=== PATIENT | male | born 1995 | race African-American/Black ===

== ENCOUNTER 2020-10-23 11:16 | Inpatient (IN) | payer MEDICAID, OTHER, SELFPAY ==
[2020-10-23] VITALS (9 sets, daily range): BP systolic 96–131; BP diastolic 46–69; PULSE 68–83; RESP 16–20; TEMP 36.1–36.7; O2SAT 97–98; BMI 22.9
--- NOTE | ~2020-10-23 | CT_ITS ---
EXAMINATION: CT HEAD WITHOUT CONTRAST CLINICAL INFORMATION: Closed head injury COMPARISON: None. TECHNIQUE: Contiguous axial imaging was performed from the skull base to vertex without intravenous contrast. This CT examination was performed using dose optimization techniques as appropriate, variously including the following: * Automated exposure control * Adjustment of mA and/or kV according to patient size (this includes techniques or standardized protocols for targeted exams where dose is matched to indication/reason for exam; i.e. extremities or head) Use of iterative reconstruction technique DLP: 744 mGy-cm. FINDINGS: There is no evidence of acute intracranial hemorrhage or territorial infarction. No abnormal mass effect or midline shift is seen. Limon to white matter differentiation is well preserved. No extra-axial fluid collections are identified. No hydrocephalus. No significant volume loss. There is no abnormal attenuation within the brain parenchyma. The osseous structures and soft tissues are normal. Small mucus retention cysts in the maxillary sinuses and right sphenoid. The mastoid air cells and visualized portions of the paranasal sinuses are otherwise well aerated. CT/CT head/brain wo con IMPRESSION: No acute intracranial pathology.
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
[2020-10-23] MEDS: Haloperidol Lactate 5 MG/ML VIAL 10 MG IM (11:02)
[2020-10-23] MEDS: LORazepam 2 MG/ML VIAL IM (11:02)
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
--- NOTE | 2020-10-23 16:12 | PC.NURSE ---
REPORT TAKEN FROM YESSY BAZAN PT HERE ON SEC 12 FOR SI. FAXED TO [facility] FOR REFERRAL. PT APPEARS CALM AND COOPERATIVE, RESTING IN RECLINER W 1:[address]
--- NOTE | 2020-10-23 20:26 | PC.NURSE ---
transfered from main ed without incident. security and careteam to assist. patient changed over with little coaxing. no one listens to me, that's why i'm here. patient tearful upon arrival. clothing placed with rest of belongings in locker 11. pt offered snacks and drinks. denies further needs. patient prompted to obtain lab work. patient state not tonight. can i do it tomorrow? patient asked to be left alone to sleep. Montioring at this time.
--- NOTE | 2020-10-23 21:01 | MHC.CARE ---
CARE team evaluated pt due to [facility] unable to provide a clinician. Plan is for Sect 12 inpt psych placement. Pt will remain in ED until placement is secured. Pt in uninsured and is not likely to be accepted at an outside facility for admission, and will be presented to for possible admission.
--- NOTE | 2020-10-23 21:47 | PC.NURSE ---
contact made to brodie casiano. belongings may be in evidience but they are unable to locate them at this time due to locker only being open M-F after 7am.
--- NOTE | 2020-10-23 22:00 | PC.NURSE ---
per brodie casiano, no belongings were left in their custody.
--- NOTE | 2020-10-23 22:53 | PC.NURSE ---
contact made with ct and security regarding flight risk status. plan for ct to call after shift, security and ert to escort patient to imaging. patient in agreement for labwork post that. charge hand aware of plan.
--- NOTE | 2020-10-23 23:31 | PC.NURSE ---
pt to ct at this time with ert and security
[2020-10-23 23:54] LABS: MANUAL DIFF FLAG NO
[2020-10-23 23:55] LABS: Basophils Percent Auto 0.4 % (0-2); Eosinophils Absolute Auto 0.1 X10*3/uL (0.0-0.4); Eosinophils Percent Auto 1.3 % (0-4); Hematocrit 42.6 % (42-52); Imm Gran Abs Auto 0.02 X10*3/uL (0.00-0.03); Imm Gran Pct Auto 0.2 % (0.0-0.4); Lymphocytes Absolute Auto 2.8 X10*3/uL (1.2-4.9); Lymphocytes Percent Auto 32.2 % (20-40); Mean Corpuscular HGB Conc 32.9 g/dl (31.0-36.0); Mean Corpuscular Hemoglobin 29.1 pg (27.0-33.0); Mean Corpuscular Volume 88.6 fL (80-98); Mean Platelet Volume 8.9 fL (9.4-12.4); Monocytes Absolute Auto 0.7 X10*3/uL (0.1-1.2); Monocytes Percent Auto 7.6 % (2-11); Neutrophils Percent Auto 58.3 % (45-73); Platelet Count 404 X10*3/uL (160-400); Red Blood Count 4.81 X10*6/uL (4.60-5.80); Red Cell Distribution Width 13.2 % (11.0-16.0); White Blood Count 8.6 X10*3/uL (4.8-10.8)
[2020-10-24] VITALS (9 sets, daily range): BP systolic 98–121; BP diastolic 55–75; PULSE 57–90; RESP 14–20; TEMP 36.1–36.9; O2SAT 97
[2020-10-24 00:09] LABS: COVID-19 Test Negative (Negative); IDNOW Serial# 9DD0AD1C
[2020-10-24 00:23] LABS: Ethanol < 10 mg/dL
[2020-10-24 00:24] LABS: Alanine Aminotransferase 17 U/L (0-40); Albumin Level 4.2 g/dL (3.5-5.0); Alkaline Phosphatase 51 U/L (39-117); Anion Gap 13 (12-20); Aspartate Amino Transferase 46 U/L (5-37); Bilirubin Direct 0.3 mg/dL (0.0-0.5); Bilirubin Total 0.7 mg/dL (0.0-1.0); Blood Urea Nitrogen 13 mg/dL (9-16); Calcium 9.3 mg/dL (8.4-10.2); Carbon Dioxide 23 mmol/L (22-29); Chloride 108 mmol/L (96-108); Creatinine Clr Calc Pharmacy 107.2; Estimated Glomerular Filt Rate > 60; Glucose Random 77 mg/dL (60-115); Potassium 4.4 mmol/L (3.3-5.1); Sodium 140 mmol/L (135-145); Total Protein 6.6 g/dL (6.5-8.0)
--- NOTE | 2020-10-24 07:37 | PC.NURSE ---
Report received from HORTENSIA Lora. Pt resting, resp unlabored.
--- NOTE | 2020-10-24 09:26 | PC.NURSE ---
Pt resting, resp unlabored
--- NOTE | 2020-10-24 10:43 | PC.NURSE ---
Pt awoke, reviewed recent events leading up to crisis evaluation w/ pt as requested by pt, Pt adamantly denies SI, but is aware that he is currently awaiting inpatient bed placement. Pt out of bed briefly to make call to girlfriend, is aware that urine specimen is still pending.
--- NOTE | 2020-10-24 12:05 | PC.NURSE ---
Pt resting, resp unlabored
--- NOTE | 2020-10-24 15:29 | PC.NURSE ---
Pt resting, resp unlabored.
--- NOTE | 2020-10-24 16:37 | PC.NURSE ---
Pt awake, alert- on telephone currently. Pt pleasant, conversing w/ staff at times, no concerns reported.
--- NOTE | 2020-10-24 18:07 | PC.NURSE ---
Pt awake, alert, affect even, pleasant.
--- NOTE | 2020-10-24 19:33 | PC.NURSE ---
Patient in bed resting quietly was up briefly for phone use, calm, pleasant, and quiet, denied distress, will continue to monitor.
[2020-10-25] VITALS (8 sets, daily range): BP systolic 100–129; BP diastolic 60–86; PULSE 54–77; RESP 16–20; TEMP 36.7–37; O2SAT 97–98
--- NOTE | 2020-10-25 07:14 | PC.NURSE ---
Report received from HORTENSIA Nava. Pt awake briefly now resting in room, no concerns reported.
[2020-10-25 07:55] LABS: Amphetamine Screen Urine Not Detected (Not Detect); Barbiturates, Urine Not Detected (Not Detect); Benzodiazepines Screen Urine Not Detected (Not Detect); Cannabinoid Screen Urine POSITIVE (Not Detect); Cocaine Screen Urine Not Detected (Not Detect); Opiate Screen Urine Not Detected (Not Detect); Phencyclidine Screen Urine Not Detected (Not Detect)
--- NOTE | 2020-10-25 10:54 | PC.NURSE ---
Pt resting in room, denies any concerns at this time, affect even, awaiting placement.
--- NOTE | 2020-10-25 12:11 | PC.NURSE ---
Pt watching television in common area, affect even, awaiting placement
--- NOTE | 2020-10-25 13:47 | PC.NURSE ---
Py currently on telephone, affect even, no concerns reported, ate lunch.
--- NOTE | 2020-10-25 15:45 | PC.NURSE ---
Pt watching television in common area, pleasant, engaging w/ staff appropriately, aware that bed search is on going.
--- NOTE | 2020-10-25 19:18 | PC.NURSE ---
Patient is on phone talking appropriately, denied distress, per report has been eating adequately and hydrating well, will continue to monitor.
[2020-10-25] MEDS: Melatonin 3 MG TABLET 6 MG PO (22:38)
--- NOTE | 2020-10-26 00:54 | MHC.CARE ---
Pt continues to board in ED, as there has not been a bed available for admission to and pt is uninsured. CARE team will complete 3 day re-assessment if placement is not secured on 10/26/20 to determine appropriate level of care.
--- NOTE | 2020-10-26 07:17 | PC.NURSE ---
REPORT FROM CHE BAZAN, PT PROVIDED WITH BREAKFAST TRAY, ATE BREAKFAST AND NOW REQUESTING FOR SHOWER
[2020-10-26 09:34] VITALS: BP 112/75; PULSE 55; RESP 18; TEMP 37.1; O2SAT 98
--- NOTE | 2020-10-26 15:38 | PC.NURSE ---
Patient noted calm and cooperative. Patient in no distress. Will monitor for changes.
[2020-10-26 17:04] VITALS: BP 112/73; PULSE 65; RESP 17; TEMP 36.8; O2SAT 99
--- NOTE | 2020-10-26 19:34 | PC.NURSE ---
Patient is calm and quiet at this time, appetite good, mood pleasant and affect broad, aware of his plan, no distress reported at this time, currently watching TV. will continue to monitor.
--- NOTE | 2020-10-27 | ECG_ITS ---
Test Reason : COCAINE USE Blood Pressure : / mmHG Vent. Rate : 056 BPM Atrial Rate : 056 BPM P-R Int : 150 ms QRS Dur : 094 ms QT Int : 380 ms P-R-T Axes : -09 -34 -04 degrees QTc Int : 366 ms Sinus bradycardia Left axis deviation Moderate voltage criteria for LVH, may be normal variant Abnormal ECG No previous ECGs available Referred By: Nadia Chu Electronically Signed By:JOSELUIS ZUNIGA MD
--- NOTE | 2020-10-27 01:35 | MHC.CARE ---
A state wide bedsearch is completed, no beds available tonight. Also, due to pt being uninsured limited units willing to review clinical.
[2020-10-27 06:00] VITALS: BP 118/87; PULSE 71; RESP 16; TEMP 36.4; O2SAT 99
--- NOTE | 2020-10-27 06:58 | PC.NURSE ---
Report recieved. Pt currently sleeping, respirations even and unlabored, in no apparent distress. PT is inpatient bedsearch.
[2020-10-27 09:15] VITALS: BP 111/59; PULSE 66; RESP 18; TEMP 36.6; O2SAT 98
--- NOTE | 2020-10-27 10:06 | PC.NURSE ---
PT resting, calm and cooperative, pleasant and polite in conversation.
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
[2020-10-27 18:00] VITALS: BP 123/87; PULSE 69; TEMP 36.7
[2020-10-27] MEDS: Nicotine Polacrilex 2 MG GUM BUCCAL ×2 (19:42→22:22)
[2020-10-27] MEDS: hydrOXYzine HCL 25 MG TABLET 50 MG PO (23:24)
[2020-10-28 05:55] VITALS: BP 130/74; PULSE 58; RESP 16; TEMP 36.6; O2SAT 100
[2020-10-28] MEDS: Nicotine Polacrilex 2 MG GUM BUCCAL ×3 (06:56→18:31)
[2020-10-28 09:08] LABS: Cholesterol 106 mg/dL; HDL Cholesterol 32 mg/dL; LDL Cholesterol Calculated 65 mg/dl; Triglycerides 45 mg/dL
[2020-10-28] MEDS: Nicotine 14 MG PATCH.TD24 TRANSDERMA (09:22)
[2020-10-28 09:59] LABS: Folate 11.8 ng/mL (> or = 4.0); Vitamin B12 312 pg/mL (200-900)
[2020-10-28 10:18] LABS: Estimated Average Glucose 100 mg/dL; Hemoglobin A1c % 5.1 %
[2020-10-28 16:46] VITALS: BP 125/75; PULSE 76; RESP 18; TEMP 36.6; O2SAT 100
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
[2020-10-28] MEDS: hydrOXYzine HCL 25 MG TABLET 50 MG PO (22:46)
[2020-10-29 06:00] VITALS: BP 122/72; PULSE 98; TEMP 36.7; O2SAT 100
--- NOTE | 2020-10-29 07:49 | HO.PSYCHPN ---
Subjective Subjective Date of Service: 10/29/20 Reason For Visit: SI Aggression Subjective Notes: Conditional Voluntary Interim History: Pleasant and cooperative. States he said SI for efect bc she says it all the time when we fight .... so I said it . Now denies SI. I explained he needs a period of observation. No dyscontrol noted. Medication Compliance: Yes Side effects from medications: No Attending Groups: Yes Review of Systems Review of Systems ROS unable to be obtained due to being aggressive and uncooperative Mental Status Exam Mental Status Exam Patient Appearance: Well Grooomed Patient Orientation: Person, Place, Time and Situation Level of Consciousness: Awake Patient Behavior: Appropriate Mood Description: Calm Patient Cognition Impaired: No Ability to Follow Directions: Excellent Speech Pattern: Clear Memory Description: Intact Hallucinations: None Thought Process: Intact Thought Content: positive for Suicidal Ideation (denies) and positive for Homicidal Ideation (denies) Depressive Symptoms: Thoughts of /Suicide (denies) Judgement: Good Diagnostics Vital Signs (24Hr): Vital Signs - 24 hr 10/28/20 16:46 10/29/20 06:00 Temperature 97.8 F 98.0 F Pulse Rate 76 98 Respiratory Rate 18 Blood Pressure 125/75 122/72 Pulse Oximetry 100 100 Body Mass Index 22.9 Labs Results: 10/23/20 23:40 10/23/20 23:40 Labs: Laboratory Results - last 48 hr 10/28/20 10/28/20 10/28/20 07:52 07:52 07:52 Estimat Average Glucose 100 Hemoglobin A1c % 5.1 Triglycerides 45 Cholesterol 106 LDL Cholesterol, Calc 65 HDL Cholesterol 32 Vitamin B12 312 Folate 11.8 Imaging Radiology Impressions: ITS Impressions Head CT 10/23/20 22:30 IMPRESSION: No acute intracranial pathology. Medications Medications Current Medications Generic Name Dose Route Start Last Admin Trade Name Freq PRN Reason Stop Dose Admin Acetaminophen 650 mg 10/27/20 15:42 Acetaminophen 325 Mg Tablet PO Q6H PRN Headache/Pain Mild Scale (1-3) Al Hydroxide/Mg Hydroxide 30 ml 10/27/20 15:42 Magnesium Hydrox/Alum Hydrox 30 Ml Oral.Susp PO Q6H PRN Heartburn/Nausea Escitalopram Oxalate 10 mg 10/29/20 09:00 Escitalopram Oxalate 10 Mg Tablet PO DAILY DYLAN Haloperidol 5 mg 10/27/20 15:47 Haloperidol 5 Mg Tablet PO Q6H PRN agitation Hydroxyzine HCl 50 mg 10/27/20 15:42 10/28/20 22:46 Hydroxyzine Hcl 25 Mg Tablet PO 50 mg Q6H PRN Administration Anxiety/sleep Lorazepam 1 mg 10/27/20 15:48 Lorazepam 1 Mg Tablet PO Q6H PRN agitation/anxiety Magnesium Hydroxide 30 ml 10/27/20 15:42 Milk Of Magnesia 30 Ml Oral.Susp PO DAILY PRN Constipation Nicotine 14 mg 10/28/20 09:12 10/28/20 09:22 Nicotine 14 Mg Patch.Td24 TRANSDERMA 14 mg DAILY DYLAN Administration Nicotine Polacrilex 2 mg 10/27/20 15:42 10/28/20 18:31 Nicotine Polacrilex 2 Mg Gum BUCCAL 2 mg Q2H PRN Administration Nicotine Cravings Trazodone HCl 50 mg 10/27/20 15:42 Trazodone Hcl 50 Mg Tablet PO BEDTIME PRN Insomnia Allergies Allergies Allergy/AdvReac Type Severity Reaction Status Date / Time No Known Allergies Allergy Unverified 05/19/20 19:10 [No Known Allergies*] Assessment & Plan Assessment & Plan (1) Mood disorder: Status: Acute Code(s): F39 - Unspecified mood [affective] disorder Greater than 50% of the session was spent on counseling and/or coordination of care Ct meds. Collateral info from family. Patient educated on: diagnosis Guardian/Caregiver educated on: diagnosis Informed Consent: understands Reason for contiued inpatient stay Substantial Risk for: harm to self and harm to others
[2020-10-29] MEDS: Nicotine 14 MG PATCH.TD24 TRANSDERMA (08:59)
[2020-10-29] MEDS: Nicotine Polacrilex 2 MG GUM BUCCAL ×3 (08:59→19:38)
[2020-10-29] MEDS: Escitalopram Oxalate 10 MG TABLET PO (08:59)
[2020-10-29 17:17] VITALS: BP 128/79; PULSE 65; RESP 18; TEMP 36.6; O2SAT 99
[2020-10-29] MEDS: hydrOXYzine HCL 25 MG TABLET 50 MG PO (22:52)
[2020-10-30 06:20] VITALS: BP 120/75; PULSE 57; RESP 16; TEMP 36.9; O2SAT 100
[2020-10-30] MEDS: Escitalopram Oxalate 10 MG TABLET PO (08:18)
[2020-10-30] MEDS: Nicotine 14 MG PATCH.TD24 TRANSDERMA (08:18)
[2020-10-30] MEDS: Nicotine Polacrilex 2 MG GUM BUCCAL ×3 (08:18→20:51)
--- NOTE | 2020-10-30 11:01 | HO.PSYCHPN ---
Subjective Subjective Date of Service: 10/30/20 Reason For Visit: SI Aggression Interim History: 10/30: Patient continues to report good mood. Denies suicidality. He has had a difficult phone calls with his girlfriend and continue to argue. States he wants to stay away from her for a few days. Patient recounted his legal troubles and wants to improve his life looking for him. Some street talk. 10/29: Pleasant and cooperative. States he said SI for effect bc she says it all the time when we fight .... so I said it . Now denies SI. I explained he needs a period of observation. No dyscontrol noted. Review of Systems Review of Systems ROS unable to be obtained due to being aggressive and uncooperative Yes all other systems are reviewed and are negative Mental Status Exam Mental Status Exam Narrative: Appearance: casually groomed, good hygiene, in NAD Behavior: calm, cooperative Psychomotor: no agitation nor retardation noted Speech: clear, normal rate/rhythm/volume, spontaneous TP: linear TC: no signs of psychosis, future oriented Mood: good Affect: congruent, non labile AH/VH: none Delusions: none Insight/judgment: fair x 2. Memory/cog: alert, oriented x 3. grossly intact to conversational testing. Patient Appearance: Well Grooomed Patient Orientation: Person, Place, Time and Situation Level of Consciousness: Awake Patient Behavior: Appropriate Mood Description: Calm Patient Cognition Impaired: No Ability to Follow Directions: Excellent Speech Pattern: Clear Memory Description: Intact Diagnostics Vital Signs (24Hr): Vital Signs - 24 hr 10/29/20 17:17 10/30/20 06:20 Temperature 97.9 F 98.5 F Pulse Rate 65 57 Respiratory Rate 18 16 Blood Pressure 128/79 120/75 Pulse Oximetry 99 100 Body Mass Index 22.9 Labs Results: 10/23/20 23:40 10/23/20 23:40 Imaging Radiology Impressions: ITS Impressions Head CT 10/23/20 22:30 IMPRESSION: No acute intracranial pathology. Medications Medications Current Medications Generic Name Dose Route Start Last Admin Trade Name Freq PRN Reason Stop Dose Admin Acetaminophen 650 mg 10/27/20 15:42 Acetaminophen 325 Mg Tablet PO Q6H PRN Headache/Pain Mild Scale (1-3) Al Hydroxide/Mg Hydroxide 30 ml 10/27/20 15:42 Magnesium Hydrox/Alum Hydrox 30 Ml Oral.Susp PO Q6H PRN Heartburn/Nausea Escitalopram Oxalate 10 mg 10/29/20 09:00 10/30/20 08:18 Escitalopram Oxalate 10 Mg Tablet PO 10 mg DAILY DYLAN Administration Haloperidol 5 mg 10/27/20 15:47 Haloperidol 5 Mg Tablet PO Q6H PRN agitation Hydroxyzine HCl 50 mg 10/27/20 15:42 10/29/20 22:52 Hydroxyzine Hcl 25 Mg Tablet PO 50 mg Q6H PRN Administration Anxiety/sleep Lorazepam 1 mg 10/27/20 15:48 Lorazepam 1 Mg Tablet PO Q6H PRN agitation/anxiety Magnesium Hydroxide 30 ml 10/27/20 15:42 Milk Of Magnesia 30 Ml Oral.Susp PO DAILY PRN Constipation Nicotine 14 mg 10/28/20 09:12 10/30/20 08:18 Nicotine 14 Mg Patch.Td24 TRANSDERMA 14 mg DAILY DYLAN Administration Nicotine Polacrilex 2 mg 10/27/20 15:42 10/30/20 08:18 Nicotine Polacrilex 2 Mg Gum BUCCAL 2 mg Q2H PRN Administration Nicotine Cravings Trazodone HCl 50 mg 10/27/20 15:42 Trazodone Hcl 50 Mg Tablet PO BEDTIME PRN Insomnia Allergies Allergies Allergy/AdvReac Type Severity Reaction Status Date / Time No Known Allergies Allergy Unverified 05/19/20 19:10 [No Known Allergies*] Assessment & Plan Assessment & Plan (1) MDD (major depressive disorder), recurrent episode, moderate: Status: Acute Code(s): F33.1 - Major depressive disorder, recurrent, moderate Assessment and Plan: 1. Start lexapro 10mg po daily 2. Obtain collateral information 3. Aftercare planning (2) Cocaine abuse: Status: Acute Code(s): F14.10 - Cocaine abuse, uncomplicated Assessment and Plan: 1. pt open to residential programs. (3) Cannabis abuse: Status: Acute Code(s): F12.10 - Cannabis abuse, uncomplicated Greater than 50% of the session was spent on counseling and/or coordination of care Reason for contiued inpatient stay Substantial Risk for: harm to self
[2020-10-30 18:00] VITALS: BP 135/84; PULSE 77; RESP 18; TEMP 36
[2020-10-30] MEDS: hydrOXYzine HCL 25 MG TABLET 50 MG PO (22:29)
[2020-10-31 06:10] VITALS: BP 126/82; PULSE 54; RESP 18; TEMP 37; O2SAT 99
[2020-10-31] MEDS: Escitalopram Oxalate 10 MG TABLET PO (09:04)
[2020-10-31] MEDS: Nicotine Polacrilex 2 MG GUM BUCCAL ×4 (14:16→21:47)
[2020-10-31 17:27] VITALS: BP 131/79; PULSE 65; RESP 16; TEMP 36.3
--- NOTE | 2020-10-31 17:32 | HO.PSYCHPN ---
Subjective Subjective Date of Service: 10/31/20 Reason For Visit: SI Aggression Interim History: Pt reports he retracted 3 day notice as he realized he needed help although he continues to report he was not suicidal. He reports sleeping well. He reports sweating at night along with vivid dreams, which he states are not new, even before lexapro. He reports lexapro helping him feel less anxious, calmer. He has been visible in the unit, social with peers. Review of Systems Review of Systems ROS unable to be obtained due to being aggressive and uncooperative Yes all other systems are reviewed and are negative Mental Status Exam Mental Status Exam Narrative: Appearance: casually groomed, good hygiene, in NAD Behavior: calm, cooperative Psychomotor: no agitation nor retardation noted Speech: clear, normal rate/rhythm/volume, spontaneous TP: linear TC: no signs of psychosis, future oriented Mood: good Affect: congruent, non labile AH/VH: none Delusions: none Insight/judgment: fair x 2. Memory/cog: alert, oriented x 3. grossly intact to conversational testing. Diagnostics Vital Signs (24Hr): Vital Signs - 24 hr 10/30/20 18:00 10/31/20 06:10 10/31/20 17:27 Temperature 96.8 F 98.6 F 97.3 F Pulse Rate 77 54 65 Respiratory Rate 18 18 16 Blood Pressure 135/84 126/82 131/79 Pulse Oximetry 99 Body Mass Index 22.9 Labs Results: 10/23/20 23:40 10/23/20 23:40 Imaging Radiology Impressions: ITS Impressions Head CT 10/23/20 22:30 IMPRESSION: No acute intracranial pathology. Medications Medications Current Medications Generic Name Dose Route Start Last Admin Trade Name Freq PRN Reason Stop Dose Admin Acetaminophen 650 mg 10/27/20 15:42 Acetaminophen 325 Mg Tablet PO Q6H PRN Headache/Pain Mild Scale (1-3) Al Hydroxide/Mg Hydroxide 30 ml 10/27/20 15:42 Magnesium Hydrox/Alum Hydrox 30 Ml Oral.Susp PO Q6H PRN Heartburn/Nausea Escitalopram Oxalate 10 mg 10/29/20 09:00 10/31/20 09:04 Escitalopram Oxalate 10 Mg Tablet PO 10 mg DAILY DYLAN Administration Haloperidol 5 mg 10/27/20 15:47 Haloperidol 5 Mg Tablet PO Q6H PRN agitation Hydroxyzine HCl 50 mg 10/27/20 15:42 10/30/20 22:29 Hydroxyzine Hcl 25 Mg Tablet PO 50 mg Q6H PRN Administration Anxiety/sleep Magnesium Hydroxide 30 ml 10/27/20 15:42 Milk Of Magnesia 30 Ml Oral.Susp PO DAILY PRN Constipation Nicotine 14 mg 10/28/20 09:12 10/31/20 12:58 Nicotine 14 Mg Patch.Td24 TRANSDERMA Not Given DAILY DYLAN Nicotine Polacrilex 2 mg 10/27/20 15:42 10/31/20 16:19 Nicotine Polacrilex 2 Mg Gum BUCCAL 2 mg Q2H PRN Administration Nicotine Cravings Trazodone HCl 50 mg 10/27/20 15:42 Trazodone Hcl 50 Mg Tablet PO BEDTIME PRN Insomnia Allergies Allergies Allergy/AdvReac Type Severity Reaction Status Date / Time No Known Allergies Allergy Unverified 05/19/20 19:10 [No Known Allergies*] Assessment & Plan Assessment & Plan (1) MDD (major depressive disorder), recurrent episode, moderate: Status: Acute Code(s): F33.1 - Major depressive disorder, recurrent, moderate Assessment and Plan: 1. Start lexapro 10mg po daily 2. Obtain collateral information 3. Aftercare planning (2) Cocaine abuse: Status: Acute Code(s): F14.10 - Cocaine abuse, uncomplicated Assessment and Plan: 1. pt open to residential programs. (3) Cannabis abuse: Status: Acute Code(s): F12.10 - Cannabis abuse, uncomplicated Greater than 50% of the session was spent on counseling and/or coordination of care Reason for contiued inpatient stay Substantial Risk for: med/psych decompensation
[2020-10-31] MEDS: hydrOXYzine HCL 25 MG TABLET 50 MG PO (23:02)
[2020-11-01 06:20] VITALS: BP 125/61; PULSE 62; RESP 16; TEMP 36.9; O2SAT 98
[2020-11-01] MEDS: Escitalopram Oxalate 10 MG TABLET PO (08:35)
--- NOTE | 2020-11-01 09:42 | PC.NURSE ---
Pt signed a 3-Day Notice on Saturday11/01/20, up on Saturday11/04/20.
[2020-11-01] MEDS: Nicotine Polacrilex 2 MG GUM BUCCAL ×2 (10:11→14:20)
[2020-11-01] MEDS: hydrOXYzine HCL 25 MG TABLET 50 MG PO (14:20)
--- NOTE | 2020-11-01 16:48 | HO.PSYCHPN ---
Subjective Subjective Date of Service: 11/01/20 Reason For Visit: SI Aggression Interim History: Pt has been visible in the unit and social with select peers. He has attended assigned groups. No behavioral concerns. Pt reports he is doing well. He denies SI/HI. He reports sleeping/eating well. Review of Systems Review of Systems ROS unable to be obtained due to being aggressive and uncooperative Yes all other systems are reviewed and are negative Mental Status Exam Mental Status Exam Narrative: Appearance: casually groomed, good hygiene, in NAD Behavior: calm, cooperative Psychomotor: no agitation nor retardation noted Speech: clear, normal rate/rhythm/volume, spontaneous TP: linear TC: no signs of psychosis, future oriented Mood: good Affect: congruent, non labile AH/VH: none Delusions: none Insight/judgment: fair x 2. Memory/cog: alert, oriented x 3. grossly intact to conversational testing. Patient Appearance: Well Grooomed Patient Orientation: Person, Place, Time and Situation Level of Consciousness: Awake Patient Behavior: Appropriate Mood Description: Calm Patient Cognition Impaired: No Ability to Follow Directions: Excellent Speech Pattern: Clear Memory Description: Intact Diagnostics Vital Signs (24Hr): Vital Signs - 24 hr 10/31/20 17:27 11/01/20 06:20 Temperature 97.3 F 98.4 F Pulse Rate 65 62 Respiratory Rate 16 16 Blood Pressure 131/79 125/61 Pulse Oximetry 98 Body Mass Index 22.9 Labs Results: 10/23/20 23:40 10/23/20 23:40 Imaging Radiology Impressions: ITS Impressions Head CT 10/23/20 22:30 IMPRESSION: No acute intracranial pathology. Medications Medications Current Medications Generic Name Dose Route Start Last Admin Trade Name Boq PRN Reason Stop Dose Admin Acetaminophen 650 mg 10/27/20 15:42 Acetaminophen 325 Mg Tablet PO Q6H PRN Headache/Pain Mild Scale (1-3) Al Hydroxide/Mg Hydroxide 30 ml 10/27/20 15:42 Magnesium Hydrox/Alum Hydrox 30 Ml Oral.Susp PO Q6H PRN Heartburn/Nausea Escitalopram Oxalate 10 mg 10/29/20 09:00 11/01/20 08:35 Escitalopram Oxalate 10 Mg Tablet PO 10 mg DAILY DYLAN Administration Haloperidol 5 mg 10/27/20 15:47 Haloperidol 5 Mg Tablet PO Q6H PRN agitation Hydroxyzine HCl 50 mg 10/27/20 15:42 11/01/20 14:20 Hydroxyzine Hcl 25 Mg Tablet PO 50 mg Q6H PRN Administration Anxiety/sleep Magnesium Hydroxide 30 ml 10/27/20 15:42 Milk Of Magnesia 30 Ml Oral.Susp PO DAILY PRN Constipation Nicotine 14 mg 10/28/20 09:12 11/01/20 08:37 Nicotine 14 Mg Patch.Td24 TRANSDERMA Not Given DAILY DYLAN Nicotine Polacrilex 2 mg 10/27/20 15:42 11/01/20 14:20 Nicotine Polacrilex 2 Mg Gum BUCCAL 2 mg Q2H PRN Administration Nicotine Cravings Trazodone HCl 50 mg 10/27/20 15:42 Trazodone Hcl 50 Mg Tablet PO BEDTIME PRN Insomnia Allergies Allergies Allergy/AdvReac Type Severity Reaction Status Date / Time No Known Allergies Allergy Unverified 05/19/20 19:10 [No Known Allergies*] Assessment & Plan Assessment & Plan (1) MDD (major depressive disorder), recurrent episode, moderate: Status: Acute Code(s): F33.1 - Major depressive disorder, recurrent, moderate Assessment and Plan: 1. Start lexapro 10mg po daily 2. Obtain collateral information 3. Aftercare planning (2) Cocaine abuse: Status: Acute Code(s): F14.10 - Cocaine abuse, uncomplicated Assessment and Plan: 1. pt open to residential programs. (3) Cannabis abuse: Status: Acute Code(s): F12.10 - Cannabis abuse, uncomplicated Greater than 50% of the session was spent on counseling and/or coordination of care Reason for contiued inpatient stay Substantial Risk for: stable for discharge
[2020-11-01 18:00] VITALS: BP 123/73; PULSE 57; TEMP 36.9
[2020-11-01] MEDS: Melatonin 3 MG TABLET 6 MG PO (23:21)
[2020-11-02 06:20] VITALS: BP 124/69; PULSE 68; RESP 18; TEMP 36.9; O2SAT 98
[2020-11-02] MEDS: Escitalopram Oxalate 10 MG TABLET PO (08:52)
[2020-11-02] MEDS: Nicotine Polacrilex 2 MG GUM BUCCAL ×2 (11:11→13:11)
--- NOTE | 2020-11-02 12:59 | PM.PSYDC ---
DS: Providers Provider Date of Service: 11/21/20 Date of admission: 10/27/20 15:42 Primary care physician: Unknown Physician DS: Diagnosis Discharge Diagnosis (1) MDD (major depressive disorder), recurrent episode, moderate: Status: Acute (2) Cocaine abuse: Status: Acute (3) Cannabis abuse: Status: Acute DS: Medications Discharge Medications Home Medications: Home Medications Medication Instructions Recorded Confirmed No Known Home Meds 10/23/20 10/23/20 Previous Rx's Medication Instructions Recorded escitalopram oxalate 10 mg PO DAILY 30 Days #30 tab 11/02/20 hydroxyzine HCl 25 mg PO Q6H PRN 15 Days #30 tab 11/02/20 melatonin 6 mg PO BEDTIME 30 Days #60 tab 11/02/20 nicotine (polacrilex) 2 mg BUCCAL Q2H PRN 30 Days #90 ea 11/02/20 trazodone 50 mg PO BEDTIME PRN 30 Days #30 11/02/20 tab Discharge Plan Discharge Patient Disposition: Home, Self-Care Referrals: Therapist & Psychiatrist: [facility] [Other] (Any issues getting appointments, call Marina ([phone]) ) Gillian Tate MD [Physician] - 12/07/20 3:00 pm Discharge Medications: New trazodone 50 mg Tablet 50 mg PO BEDTIME PRN (Reason: Insomnia) 30 Days Qty: 30 RF: 0 nicotine (polacrilex) 2 mg Gum 2 mg buccal Q2H PRN (Reason: Nicotine Cravings) 30 Days Qty: 90 RF: 0 melatonin 3 mg Tablet 6 mg PO BEDTIME 30 Days Qty: 60 RF: 0 hydroxyzine HCl 25 mg Tablet 25 mg PO Q6H PRN (Reason: Anxiety/sleep) 15 Days Qty: 30 RF: 0 escitalopram oxalate 10 mg Tablet 10 mg PO DAILY 30 Days Qty: 30 RF: 0 No Action No Known Home Meds RF: 0 Discharge Orders: Discharge Order (Routine); Ordered 11/02/20 Ordered By: Kourtney Renee Diet: regular diet Activity on Discharge: As tolerated Stand Alone Forms: Patient Portal Discharge page, Community Support Care Plan Goals: 1. Follow up referrals 2. Take medications as prescribed Health Concerns: 1. Follow up with PCP Plan of Treatment: 1. Follow up with referrals 2. Take medications as prescribed. Discharge Date/Time: 11/02/20 14:53 Data Data Completed and Pending Completed studies during hospitalization [Text1]: 10/28/20 10/28/20 10/28/20 07:52 07:52 07:52 Estimat Average Glucose 100 Hemoglobin A1c % 5.1 Triglycerides 45 Cholesterol 106 LDL Cholesterol, Calc 65 HDL Cholesterol 32 Vitamin B12 312 Folate 11.8 Imaging Diagnostic Imaging Impressions Head CT 10/23/20 22:30 IMPRESSION: No acute intracranial pathology. DS: Summary Hospital Course Hospital Course: [address] [address] Psychiatry Admission Note (In)Signed Patient: Homer EasonMR#: [id number]: [id number]:[id number]/Sex: 25 / MLoc:[id number]: Kourtney Renee cc: ~ Documented by User: Kourtney Renee 10/29/20 10:36 HPI Chief Complaint: SI Aggression Sources of Information: patient interviewed, chart reviewed and crisis/core team assessment reviewed HPI Subjective Notes: 3 Day Narrative: Mr. Eason is a 25 year-old male with hx of cocaine use in early remission and MDD. He was brought to [facility] ED on [address] Pt apparently had argument with his GF and expressed suicidal ideation. Per crisis report, pt had reported that he was going to hang himself or jump into traffic. Pt was found by police and was combative. While in the ED, pt tried to elope and was chemically restraint. His utox was positive for cannabis. On the unit, pt appears calm, cooperative. Pt reports that he expressed suicidal ideation out of frustration but states he had no intention to hurt himself nor that he in fact was suicidal. Pt reports that he was adopted when he was about 13 years old to a couple in [place]. He reports he eloped from his adoptive parents looking for his biological mother in [place]. He reports his mother struggles with substance use and therefore he was in DCF system and ultimately put in adoption. He reports he had criminal charges in his youth initially for drug possession, he spent 4 years in juvenile care home. He was out for one year, then incarcerated again for robbery for another 4 years. He states since he was release from residential about 1-2 years ago he has been homeless. He states he has been staying in friend's houses and at his brother's house. He states there's been times when he does not have a place to stay at and he sleeps on the streets. He reports he had stayed in [facility]'s in [place] but did not feel safe, therefore, he rather stay on the streets. He reports while in care home, he was treated for depression with remeron. He states it did help with his mood and he noticed a difference when he stopped it but he states it was too sedating. He denies any other antidepressant or psychotropic trial. He denies hx of VH/AH. He denies s/s suggestive of hypomania or stephanie. He denies nightmares, flashbacks. He denies history of suicide attempts. Past Psychiatric History: Inpatient: none prior to this one OP: none Suicide attempts: none Medication trials: remeron (good effect but too sedating) HOSPITAL COURSE On the unit, pt presented as calm and cooperative. He adamantly denied suicidal or homicidal ideation. He reported he had argument with GF and out of frustration reported suicidal ideation. He reports that he run away from police as he is traumatized by having spend 8 years of his life in care home. He notes that the police wanted to bring him to the hospital but his initial reaction triggered by his past experience incarceration. His affect was bright, non labile. His hygiene was good. He was future oriented in that he wanted a better life but due to his legal history he has struggled to find stable housing. He also admits that using cocaine has affected his ability to have more stability in his life along with traumatic childhood and upbringing mostly in foster care system and then in care home. After discussing risks, benefits and alternative treatment options, he was started on lexapro. He had been on remeron with good effect but he stated it was too sedation. He was visible in the unit, attended groups, very pleasant on approach and social with peers. He agreed to be referred to OP psychiatric treatment and other welfare case worker services. He was sleeping and eating well. There were no incidences of disruptive behaviors nor use of restraints. Time spent discussing smoking cessation with patient: 3 to 10 minutes Status at Discharge Cognitive/behavioral status at discharge: Pt adamantly denies SI/HI. Pt has brighter affect, congruent with reported improved mood. He is future oriented. No signs of aggression towards self or others. Functional status at discharge: independent ambulation Overall status at discharge: patient is back to baseline Time Spent with Patient Time attestation: Total time spent providing and/or coordinating discharge services: Time spent: Less than 30 minutes
[2020-11-02] MEDS: hydrOXYzine HCL 25 MG TABLET 50 MG PO (13:11)
== END 2020-11-02 14:53 | disposition home or self-care (01) | DRG 751 ==
LOC: HO.ED 20:06 → HO.PM5 10-27 15:51
PROVIDERS: Admitting Provider Psychiatry & Neurology Psychiatry; Emergency Provider Emergency Medicine; Visit Provider Social Worker
DX: F33.1 Major depressive disorder, recurrent, moderate (principal); R45.851 Suicidal ideations; F14.10 Cocaine abuse, uncomplicated; F12.10 Cannabis abuse, uncomplicated; F17.200 Nicotine dependence, unspecified, uncomplicated; Z20.822 Contact with and (suspected) exposure to COVID-19; Z71.6 Tobacco abuse counseling; Z79.899 Other long term (current) drug therapy
CPT/HCPCS: 36415; 70450; 80048; 80061; 80076; 80307; 80320; 82607; 82746; 83036; 85025; 87635; 93005; 99285; J2060

== ENCOUNTER 2022-09-12 08:17 | Inpatient (IN) | payer OTHER, SELFPAY ==
--- NOTE | 2022-09-12 | ECG_ITS ---
Test Reason : MED CLEARANCE Blood Pressure : / mmHG Vent. Rate : 060 BPM Atrial Rate : 060 BPM P-R Int : 172 ms QRS Dur : 098 ms QT Int : 404 ms P-R-T Axes : 062 092 068 degrees QTc Int : 404 ms Normal sinus rhythm with sinus arrhythmia Rightward axis ST elevations due to early repolarization Borderline ECG When compared with ECG of 27-OCT-2020 14:19, QRS axis Shifted right T wave inversion no longer evident in Inferior leads Referred By: Vivi Diggs Electronically Signed By:Derek Fong
[2022-09-12 08:21] VITALS: BP 110/71; PULSE 66; RESP 18; TEMP 36.9; O2SAT 98; BMI 21.7
--- NOTE | 2022-09-12 08:31 | ED_ITS ---
HPI - General Adult General Chief complaint: Psychiatric Symptoms Stated complaint: crisis ,SI Time Seen by Provider: 09/12/22 08:24 Source: patient and other (girlfriend) Mode of arrival: ambulatory Limitations: no limitations History of Present Illness HPI narrative: Patient is a 26 year old assigned male at with a history of cocaine abuse presenting to the emergency department today with suicidal ideation. Patient refused to answer questions about why he is here today. Patient's girlfriend states that the patient has been attempting to jump out of the car to kill himself. Patient denies any complaints at this time. Severity: moderate Severity scale (1-10): 4 Relieving factors: none Exacerbating factors: none Associated symptoms: denies other symptoms Treatments prior to arrival: none Related Data Home Medications Medication Instructions Recorded Confirmed No Known Home Meds 10/23/20 09/12/22 Previous Rx's Medication Instructions Recorded escitalopram oxalate 10 mg tablet 10 mg PO DAILY 30 days #30 tabs 11/02/20 hydroxyzine HCl 25 mg tablet 25 mg PO Q6H PRN Anxiety/sleep 15 11/02/20 days #30 tabs melatonin 3 mg tablet 6 mg PO BEDTIME 30 days #60 tabs 11/02/20 nicotine (polacrilex) 2 mg gum 2 mg buccal Q2H PRN Nicotine 11/02/20 Cravings 30 days #90 ea trazodone 50 mg tablet 50 mg PO BEDTIME PRN Insomnia 30 11/02/20 days #30 tabs Allergies Allergy/AdvReac Type Severity Reaction Status Date / Time No Known Allergies Allergy Verified 09/12/22 08:25 [No Known Allergies*] Review of Systems Constitutional: Constitutional: Reports no additional constitutional complaints, Denies chills, Denies fever(s) and Denies night sweats Eyes: Eyes: Reports no additional eye complaints, Denies blurry vision, Denies change in vision, Denies diplopia, Denies eye discharge, Denies loss of vision and Denies eye pain ENT: Denies dizziness Cardiovascular: Cardiovascular: Reports no additional cardiovascular complaints, Denies chest pain, Denies lightheadedness, Denies Loss of Consciousness and Denies dyspnea Respiratory: Respiratory: Reports no additional respiratory complaints and Denies dyspnea Gastrointestinal: Gastrointestinal: Reports no additional gastrointestinal complaints, Denies abdominal pain, Denies melena, Denies hematochezia, Denies change in bowel habits and Denies change in stool character Genitourinary: Genitourinary: Reports no additional male genitourinary complaints, Denies hematuria, Denies oliguria, Denies difficulty urinating, Denies dysuria, Denies urinary frequency, Denies urinary hesitancy, Denies urinary incontinence and Denies urinary urgency Musculoskeletal: Musculoskeletal: Reports no additional musculoskeletal complaints, Denies numbness and Denies tingling Neurologic: Denies dizziness, Denies loss of vision, Denies numbness and Denies tingling Psychiatric: Psychiatric: Reports no additional psychiatric complaints, Denies homicidal ideation and Reports suicidal ideation Endocrine: Endocrine: Reports no additional endocrine complaints Hematologic/Lymphatic: Hematologic/Lymphatic: Reports no additional hematologic/lymphatic complaints Allergic/Immunologic: Allergic/Immunologic: Reports no additional allergic/immunologic complaints PMFSH Past Medical History Attestation statement: The following information was validated with the patient. Source: old records reviewed, nursing notes reviewed and other (patient's girlfriend) Medical History No active medical problems Social History Social History Household Members: Friend(s) Household Members Other:: PT HAS BEEN BOUNCING FROM FRIEND TO FRIEND'S HOUSE Housing: Homeless Do you presently have visiting nurse or other home services: No Cigarette Packs Per Day: 0.5 Cigarettes Per Day: 10.0 Second Hand Smoke Exposure: Yes Substance Use Type: Marijuana Advance Directives: No Advance Directives Information Provided: No service: No Sexual orientation: Straight/Heterosexual Physical Exam ED Vital Signs: Vital Signs - 24 hr 09/12/22 08:21 09/12/22 16:03 Temperature 98.5 F Pulse Rate 66 68 Respiratory Rate 18 17 Blood Pressure 110/71 120/64 Pulse Oximetry 98 98 Oxygen Delivery Method Room Air Room Air BMI result Body Mass Index 21.7 Const General: cooperative, no acute distress, alert and awake Nutritional Appearance: well nourished Orientation/consciousness: patient oriented x3 Limitations: no limitations HENMT Head: Yes normal to inspection and Yes atraumatic Ears: hearing grossly normal bilaterally and external ears normal General nose exam: Normal external nose present, no nasal discharge noted and no epistaxis Face and sinus: Yes normal facial exam, No abrasion and No laceration Mouth: Normal oral and palatal mucosa present, no drooling and no muffled voice Eyes General: appearance normal, both eyes and all related structures Periorbital: periorbital findings normal Eyelids: Yes eyelids normal Conjunctivae: conjunctivae normal Pupils: Equal, round and reactive pupils present EOM: EOMs intact bilaterally Neck Neck: Yes normal visual inspection, Yes full ROM and Yes no lymphadenopathy Chest Chest palpation & inspection: normal inspection of the chest Resp Effort & Inspection: normal respiratory effort and able to speak in complete sentences Auscultation: clear to auscultation bilaterally Cardio Rate: regular rate Rhythm: regular rhythm GI Inspection: Yes normal to inspection Palpation (GI): Soft to palpation, not firm, nontender and no guarding Neuro General: patient oriented x3 and moves all extremities Cranial nerves: Yes Equal, round and reactive pupils present Cognition (Neuro): normal cognition Motor exam (neuro): 5/5 motor strength present throughout Sensory Exam: Normal double simultaneous stimulation for sensation Coordination: [id number] test normal Extrem General: Yes normal to inspection, Yes full ROM and Yes capillary refill normal Psych Appearance: grossly normal Mental Status: mental status grossly normal Affect: Blunted affect present Thought content: Suicidality present Insight: Limited insight present (Psych) Judgement: Limited judgement present (Psych) Medical Decision Making Medical Decision Making MDM Narrative: Patient is a 26 year old assigned male at with a history of cocaine abuse presenting to the emergency department today with suicidal ideation. Patient's physical exam was unremarkable. Patient's blood work was unremarkable. Patient was accepted for inpatient psychiatric care. I explained my physical exam findings as well as all test results to the patient. I answered all questions asked by the patient. Patient to be admitted. Differential Diagnosis Differential Diagnoses: The differential diagnosis associated with the presentation includes Depression, suicidal ideation Lab Data MDM Lab Attestation statement: I reviewed the patient's lab results. 09/12/22 13:38 09/12/22 13:38 Labs: Lab Results 09/12/22 09/12/22 09/12/22 Range/Units 09:04 13:38 13:38 WBC 4.1 L (4.8-10.8) X10*3/uL RBC 4.48 L (4.60-5.80) X10*6/uL Hgb 12.9 L (14.0-18.0) g/dl Hct 38.7 L (42.0-52.0) % MCV 86.4 (80.0-98.0) fL MCH 28.8 (27.0-33.0) pg MCHC 33.3 (31.0-36.0) g/dl RDW 13.2 (11.0-16.0) % Plt Count 319 (160-400) X10*3/uL MPV 8.6 L (9.4-12.4) fL Immature Gran % (Auto) 0.0 (0.0-0.4) % Neut % (Auto) 48.5 (45-73) % Lymph % (Auto) 41.0 H (20-40) % [place] % (Auto) 9.8 (2-11) % Eos % (Auto) 0.5 (0-4) % Baso % (Auto) 0.2 (0-2) % Lymph # (Auto) 1.7 (1.2-4.9) X10*3/uL [place] # (Auto) 0.4 (0.1-1.2) X10*3/uL Eos # (Auto) 0.0 (0.0-0.4) X10*3/uL Baso # (Auto) 0.0 (0.0-0.2) X10*3/uL Abs Immat Gran (auto) 0.00 (0.00-0.03) X10*3/uL Absolute Neuts (auto) 2.0 (2.0-8.3) x10*3/uL Absolute Nucleated RBC 0.000 (0.0-0.012) X10*3/uL Nucleated RBC % (auto) 0.0 (0.0-0.2) /100WBC Sodium Cancelled Potassium Cancelled Chloride Cancelled Carbon Dioxide Cancelled Anion Gap Cancelled BUN Cancelled Creatinine Cancelled Estim Creat Clear Calc Cancelled Estimated GFR Cancelled Random Glucose Cancelled Calcium Cancelled Total Bilirubin Cancelled AST Cancelled ALT Cancelled Alkaline Phosphatase Cancelled Total Protein Cancelled Albumin Cancelled Ethyl Alcohol mg/dL COVID-19 ([facility]) Negative (Negative) COVID-19 Clin Com See Note 09/12/22 Range/Units 13:38 WBC (4.8-10.8) X10*3/uL RBC (4.60-5.80) X10*6/uL Hgb (14.0-18.0) g/dl Hct (42.0-52.0) % MCV (80.0-98.0) fL MCH (27.0-33.0) pg MCHC (31.0-36.0) g/dl RDW (11.0-16.0) % Plt Count (160-400) X10*3/uL MPV (9.4-12.4) fL Immature Gran % (Auto) (0.0-0.4) % Neut % (Auto) (45-73) % Lymph % (Auto) (20-40) % [place] % (Auto) (2-11) % Eos % (Auto) (0-4) % Baso % (Auto) (0-2) % Lymph # (Auto) (1.2-4.9) X10*3/uL [place] # (Auto) (0.1-1.2) X10*3/uL Eos # (Auto) (0.0-0.4) X10*3/uL Baso # (Auto) (0.0-0.2) X10*3/uL Abs Immat Gran (auto) (0.00-0.03) X10*3/uL Absolute Neuts (auto) (2.0-8.3) x10*3/uL Absolute Nucleated RBC (0.0-0.012) X10*3/uL Nucleated RBC % (auto) (0.0-0.2) /100WBC Sodium 137 Potassium 4.0 Chloride 106 Carbon Dioxide 25 Anion Gap 10 L BUN 14 Creatinine 0.90 Estim Creat Clear Calc 132.2 Estimated GFR > 60 Random Glucose 86 Calcium 9.1 Total Bilirubin 0.3 AST 29 ALT 17 Alkaline Phosphatase 47 Total Protein 6.7 Albumin 4.1 Ethyl Alcohol < 10 mg/dL COVID-19 ([facility]) (Negative) COVID-19 Clin Com Discharge Plan Discharge Clinical Impression: Suicidal ideation Patient Disposition: Admitted As Inpatient Interventions: [place]-Suicide Risk Severity Scale Last Done: 09/12/22 08:55
--- NOTE | 2022-09-12 08:45 | PC.NURSE ---
supplemental triage note- client had professed SI thoughts w plan to artur prince brought here. plan unclear, patient states recent use of thc and cocaine, patient states drug use sporadic . does attest to smoking cigarettes and would like gum as NRT. patient states prev hospitalized here. lives w Falguni. prev meds 'clonidine and remeron .
[2022-09-12 09:25] LABS: COVID-19 Test Negative (Negative); IDNOW Serial# BCCEAD1C
[2022-09-12 13:47] LABS: MANUAL DIFF FLAG NO
[2022-09-12 13:48] LABS: Basophils Percent Auto 0.2 % (0-2); Eosinophils Percent Auto 0.5 % (0-4); Hematocrit 38.7 % (42.0-52.0); Hemoglobin 12.9 g/dl (14.0-18.0); Lymphocytes Absolute Auto 1.7 X10*3/uL (1.2-4.9); Mean Corpuscular HGB Conc 33.3 g/dl (31.0-36.0); Mean Corpuscular Hemoglobin 28.8 pg (27.0-33.0); Mean Corpuscular Volume 86.4 fL (80.0-98.0); Mean Platelet Volume 8.6 fL (9.4-12.4); Monocytes Absolute Auto 0.4 X10*3/uL (0.1-1.2); Monocytes Percent Auto 9.8 % (2-11); Neutrophils Percent Auto 48.5 % (45-73); Platelet Count 319 X10*3/uL (160-400); Red Blood Count 4.48 X10*6/uL (4.60-5.80); Red Cell Distribution Width 13.2 % (11.0-16.0); White Blood Count 4.1 X10*3/uL (4.8-10.8)
[2022-09-12 14:34] LABS: Alanine Aminotransferase 17 U/L (0-40); Albumin Level 4.1 g/dL (3.5-5.0); Alkaline Phosphatase 47 U/L (39-117); Anion Gap 10 (12-20); Aspartate Amino Transferase 29 U/L (5-37); Bilirubin Total 0.3 mg/dL (0.0-1.0); Blood Urea Nitrogen 14 mg/dL (9-16); Calcium 9.1 mg/dL (8.4-10.2); Carbon Dioxide 25 mmol/L (22-29); Chloride 106 mmol/L (96-108); Creatinine Clr Calc Pharmacy 132.2; Estimated Glomerular Filt Rate > 60; Ethanol < 10 mg/dL; Glucose Random 86 mg/dL (60-115); Sodium 137 mmol/L (135-145); Total Protein 6.7 g/dL (6.5-8.0)
--- NOTE | 2022-09-12 15:25 | PC.NURSE ---
report received from HORTENSIA Byrd Pt is resting on bed at this time. Fiance is at the bedside visiting
[2022-09-12 16:03] VITALS: BP 120/64; PULSE 68; RESP 17; O2SAT 98
[2022-09-12 19:38] LABS: Amphetamine Screen Urine Not Detected (Not Detect); Barbiturates, Urine Not Detected (Not Detect); Benzodiazepines Screen Urine Not Detected (Not Detect); Cannabinoid Screen Urine POSITIVE (Not Detect); Cocaine Screen Urine POSITIVE (Not Detect); Fentanyl, urine Not Detected (Not Detect); Opiate Screen Urine Not Detected (Not Detect); Phencyclidine Screen Urine Not Detected (Not Detect)
--- NOTE | 2022-09-13 01:42 | PC.ADMIT ---
Pt is a 26 year old male admitted to the unit after referral from [facility] through the [facility] ED. Pt arrived on unit at 2310 on 09/12/2022. Legal status is CV. Pt denies current medical issues except for GERD. Pt reports daily use of marijuana. Pt reports not having used cocaine for some time now but recently used in the last few days. Pt stated that one of the reasons he is here is because he felt that he was wanted to relapse on cocaine bad . States that he only recently used some cocaine a few days ago. Pt's precipitant to admission was that he had not been taking his medications for about a year and everything was fine until a few days ago (cocaine usage?). Pt reports feeling an episode of increased anxiety and depression while he was in the car with his fiancee and that he suddenly wanted to get out of the car but that his fiancee didn't slow down fast enough. Pt stated he was not trying to harm himself but just wanted to get out of the car quickly. Per crisis eval, Pt's fiancee / states that he was having escalating anxiety & depression with SI and made attempts to jump out of car into traffic while she was driving.Later at [facility] ED, pt stated he attempted to jump out of car to knock myself out . Pt presents in hospital [facility] with a depressed affect, makes intermittent eye contact, stating that he probably will not be able to sleep as he has not for several days. Provider forest economist Dixie notified of admission and orders obtained. Pt placed on 15 minute safety checks. Pt reports feeling safe in hospital.
--- NOTE | 2022-09-13 02:25 | PC.NURSE ---
Pt is refusing the flu shot.
[2022-09-13 09:26] LABS: Estimated Average Glucose 103 mg/dL; Hemoglobin A1c % 5.2 %
[2022-09-13 09:38] VITALS: BP 119/85; PULSE 57; RESP 15; TEMP 36.6; O2SAT 98
[2022-09-13 11:50] LABS: Alanine Aminotransferase 20 U/L (0-40); Albumin Level 4.4 g/dL (3.5-5.0); Alkaline Phosphatase 49 U/L (39-117); Anion Gap 10 (12-20); Aspartate Amino Transferase 26 U/L (5-37); Bilirubin Direct 0.2 mg/dL (0.0-0.5); Bilirubin Total 0.5 mg/dL (0.0-1.0); Blood Urea Nitrogen 15 mg/dL (9-16); Calcium 9.5 mg/dL (8.4-10.2); Carbon Dioxide 25 mmol/L (22-29); Chloride 106 mmol/L (96-108); Cholesterol 116 mg/dL; Creatinine Clr Calc Pharmacy 99.1; Estimated Glomerular Filt Rate > 60; Glucose Fasting 85 mg/dL (60-99); HDL Cholesterol 28 mg/dL; LDL Cholesterol Calculated 75 mg/dl; Potassium 4.3 mmol/L (3.3-5.1); Sodium 137 mmol/L (135-145); Total Protein 7.1 g/dL (6.5-8.0); Triglycerides 66 mg/dL
[2022-09-13 12:07] LABS: Folate 14.6 ng/mL (> or = 4.0); Vitamin B12 445 pg/mL (200-900)
[2022-09-13] MEDS: Nicotine Polacrilex 2 MG GUM 4 MG BUCCAL ×2 (12:13→20:18)
[2022-09-13 12:22] VITALS: BMI 20.7
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
[2022-09-13] MEDS: Nicotine 21 MG PATCH.TD24 TRANSDERMA (13:17)
--- NOTE | 2022-09-13 14:15 | MHC.CLN ---
RE: CONSULT HT 6'1 WT 74.5KG (164#) IBW 184#+/-10% PT IS 89% IBW INDICATES BORDERLINE MILD UNDER WT FOR HT HOWEVER BMI 20.7 NORMAL PREVIOUS WT HX REVEALS 72.6KG (10/23/20) WT UP 4.4# SINCE LAST ADMISSION ENN: 2200KCALS, 74G PROTEIN, 2200ML FLUID LABS UNREMARKABLE DIET RX: REGULAR-APPROPRIATE NO NEW ORDERS AT THIS TIME MONITOR PO INTAKE CLOSELY IF PO INTAKE POOR X 3 DAYS; RECOMMEND ADDING ENSURE BID WEEKLY WEIGHTS
[2022-09-13] MEDS: Mirtazapine 7.5 MG TABLET PO (20:18)
[2022-09-14] MEDS: Nicotine 21 MG PATCH.TD24 TRANSDERMA (08:26)
[2022-09-14 08:59] VITALS: BP 120/74; PULSE 52; RESP 16; TEMP 36.8; O2SAT 100
[2022-09-14 20:58] VITALS: BP 119/72; PULSE 63; RESP 16; TEMP 36.1; O2SAT 97
[2022-09-14] MEDS: Mirtazapine 7.5 MG TABLET PO (22:15)
--- NOTE | 2022-09-14 23:22 | P.PNPSI_ITS ---
Subjective Subjective Date of Service: 09/14/22 Reason For Visit: SI Subjective Notes: Rueda Warning, Conditional Voluntary and 3 Day Interim History: Patient relates history of PTSD in relationship to past longterm time states he felt a little tired in the morning but slept last night and feels somewhat better today. Patient states he feels supported by his partner That he did not intend to kill himself but had felt distraught prior to admission again denies any manic symptoms stated he had felt well on Remeron in the past Medication Compliance: Yes Mental Status Exam Mental Status Exam Patient Appearance: Well Grooomed Patient Orientation: Person, Place, Time and Situation Level of Consciousness: Awake Patient Behavior: Appropriate Mood Description: Calm, Depressed and Apprehensive Affect Description: Constricted Patient Cognition Impaired: No Ability to Follow Directions: Good Speech Pattern: Clear Memory Description: Intact Hallucinations: None Delusions: Not Present Thought Process: Intact Thought Content: positive for Preoccupation, positive for Suicidal Ideation (Denies active self-harm states at times he feels overwhelmed) and negative for Homicidal Ideation Depressive Symptoms: Increased Anxiety, Increased Irritability and Difficulty Sleeping Judgement: Fair Diagnostics Vital Signs (24Hr): Vital Signs - 24 hr 09/14/22 08:59 09/14/22 20:58 Temperature 98.3 F 96.9 F Pulse Rate 52 63 Respiratory Rate 16 16 Blood Pressure 120/74 119/72 Pulse Oximetry 100 97 Oxygen Delivery Method Room Air Room Air BMI result Body Mass Index 20.7 Labs 09/12/22 13:38 09/13/22 09:02 Labs: Laboratory Results - last 48 hr 09/13/22 09/13/22 09/13/22 09:02 09:02 09:02 Sodium 137 Potassium 4.3 Chloride 106 Carbon Dioxide 25 Anion Gap 10 L BUN 15 Creatinine 1.20 Estim Creat Clear Calc 99.1 Estimated GFR > 60 Fasting Glucose 85 Estimat Average Glucose 103 Hemoglobin A1c % 5.2 Calcium 9.5 Total Bilirubin 0.5 Direct Bilirubin 0.2 AST 26 ALT 20 Alkaline Phosphatase 49 Total Protein 7.1 Albumin 4.4 Triglycerides 66 Cholesterol 116 LDL Cholesterol, Calc 75 HDL Cholesterol 28 Vitamin B12 445 Folate 14.6 TSH 0.90 Medications Medications Current Medications Acetaminophen (Acetaminophen 325 Mg Tablet) 650 mg PO Q6H PRN PRN Reason: Headache/Pain Mild Scale (1-3) Al Hydroxide/Mg Hydroxide (Magnesium Hydrox/Alum Hydrox 30 Ml Oral.Susp) 30 ml PO Q6H PRN PRN Reason: Heartburn/Nausea Hydroxyzine HCl (Hydroxyzine Hcl 25 Mg Tablet) 25 mg PO Q6H PRN PRN Reason: Anxiety Magnesium Hydroxide (Milk Of Magnesia 30 Ml Oral.Susp) 30 ml PO DAILY PRN PRN Reason: Constipation Mirtazapine (Mirtazapine 7.5 Mg Tablet) 7.5 mg PO BEDTIME [facility] Last Admin: 09/14/22 22:15 Dose: 7.5 mg Nicotine (Nicotine 21 Mg Patch.Td24) 21 mg TRANSDERMA DAILY [facility] Last Admin: 09/14/22 08:26 Dose: 21 mg Nicotine Polacrilex (Nicotine Polacrilex 2 Mg Gum) 4 mg BUCCAL Q2H PRN PRN Reason: Nicotine Cravings Last Admin: 09/13/22 20:18 Dose: 2 mg Allergies Allergies Allergy/AdvReac Type Severity Reaction Status Date / Time No Known Allergies Allergy Verified 09/12/22 08:25 [No Known Allergies*] Assessment & Plan Assessment & Plan (1) MDD (major depressive disorder), recurrent episode, moderate: Status: Acute Code(s): F33.1 - Major depressive disorder, recurrent, moderate (2) Cocaine abuse: Status: Acute Code(s): F14.10 - Cocaine abuse, uncomplicated (3) Chronic post-traumatic stress disorder (PTSD): Status: Acute Code(s): F43.12 - Post-traumatic stress disorder, chronic Plan Patient seems to be downplaying his recent behavior and symptoms including increased irritability he has suicidal statements increasing insomnia use of substances. History of depression PTSD question cocaine induced irritability in mood difficulty trying clarify diagnosis would benefit from outpatient treatment agreeable to starting mirtazapine 7.5 at bedtime no reported stephanie reportedly his mother was using cocaine during his development. Patient has an 8th grade education he does state he works regularly 09/14/2021 Patient seen chart reviewed continue mirtazapine at bedtime encourage therapeutic [place] abstinence from cocaine and marijuana uses marijuana of his self-care with PTSD On 3 day notice continue to evaluate safety Patient educated on: diagnosis, medication risk/benefits and therapeutic strategies Informed Consent: understands Reason for contiued inpatient stay Substantial Risk for: harm to self and rapid decompensation Time Spent With Patient Time: Total time managing care of this patient today ____ minutes.
[2022-09-15 09:50] VITALS: BP 121/74; PULSE 64; TEMP 36.6; O2SAT 97
--- NOTE | 2022-09-15 17:41 | P.PNPSI_ITS ---
Subjective Subjective Date of Service: 09/15/22 Reason For Visit: SI Interim History: met with patient. Discussed with Nursing. Chart reviewed. Overall slept well last night, which was new for patient. Reported feeling safe and stable. Today reports mood continues to be good. Sleep good. No medication concerns. Hopeful for discharge planning soon. Will lower nicotine patch from 21 mg down to 14 mg. Medication Compliance: Yes Side effects from medications: No Attending Groups: Yes Review of Systems Acute medical concerns: No Review of Systems Review of Systems Yes all other systems are reviewed and are negative Mental Status Exam Mental Status Exam Narrative: pleasant. Engaged. Organized. Appropriately presented. Euthymic. No SI. No HI. No agitation. No psychosis. Insight and judgment fair Diagnostics Vital Signs (24Hr): Vital Signs - 24 hr 09/14/22 20:58 09/15/22 09:50 Temperature 96.9 F 97.8 F Pulse Rate 63 64 Respiratory Rate 16 Blood Pressure 119/72 121/74 Pulse Oximetry 97 97 Oxygen Delivery Method Room Air Room Air BMI result Body Mass Index 20.7 Labs 09/12/22 13:38 09/13/22 09:02 Medications Medications Current Medications Acetaminophen (Acetaminophen 325 Mg Tablet) 650 mg PO Q6H PRN PRN Reason: Headache/Pain Mild Scale (1-3) Al Hydroxide/Mg Hydroxide (Magnesium Hydrox/Alum Hydrox 30 Ml Oral.Susp) 30 ml PO Q6H PRN PRN Reason: Heartburn/Nausea Hydroxyzine HCl (Hydroxyzine Hcl 25 Mg Tablet) 25 mg PO Q6H PRN PRN Reason: Anxiety Magnesium Hydroxide (Milk Of Magnesia 30 Ml Oral.Susp) 30 ml PO DAILY PRN PRN Reason: Constipation Mirtazapine (Mirtazapine 7.5 Mg Tablet) 7.5 mg PO BEDTIME [facility] Last Admin: 09/14/22 22:15 Dose: 7.5 mg Nicotine (Nicotine 14 Mg Patch.Td24) 14 mg TRANSDERMA DAILY [facility] Last Admin: 09/15/22 15:35 Dose: Not Given Nicotine Polacrilex (Nicotine Polacrilex 2 Mg Gum) 4 mg BUCCAL Q2H PRN PRN Reason: Nicotine Cravings Allergies Allergies Allergy/AdvReac Type Severity Reaction Status Date / Time No Known Allergies Allergy Verified 09/12/22 08:25 [No Known Allergies*] Assessment & Plan Assessment & Plan (1) MDD (major depressive disorder), recurrent episode, moderate: Status: Acute Code(s): F33.1 - Major depressive disorder, recurrent, moderate (2) Cocaine abuse: Status: Acute Code(s): F14.10 - Cocaine abuse, uncomplicated (3) Chronic post-traumatic stress disorder (PTSD): Status: Acute Code(s): F43.12 - Post-traumatic stress disorder, chronic Plan Patient seems to be downplaying his recent behavior and symptoms including increased irritability he has suicidal statements increasing insomnia use of substances. History of depression PTSD question cocaine induced irritability in mood difficulty trying clarify diagnosis would benefit from outpatient treatment agreeable to starting mirtazapine 7.5 at bedtime no reported stephanie reportedly his mother was using cocaine during his development. Patient has an 8th grade education he does state he works regularly 09/14/2021 Patient seen chart reviewed continue mirtazapine at bedtime encourage therapeutic [place] abstinence from cocaine and marijuana uses marijuana of his self-care with PTSD On 3 day notice continue to evaluate safety 09/15/2022: No changes to current treatment plan Reason for contiued inpatient stay Substantial Risk for: harm to self Time Spent With Patient Time: Total time managing care of this patient today ____ minutes.
[2022-09-15 20:30] VITALS: BP 119/72; PULSE 73; RESP 16; TEMP 36.7; O2SAT 96
[2022-09-15] MEDS: Mirtazapine 7.5 MG TABLET PO (22:11)
[2022-09-16 09:23] VITALS: BP 138/88; PULSE 74; TEMP 36.6; O2SAT 99
[2022-09-16] MEDS: Nicotine 14 MG PATCH.TD24 TRANSDERMA (09:34)
[2022-09-16] MEDS: Nicotine Polacrilex 2 MG GUM 4 MG BUCCAL (10:50)
--- NOTE | 2022-09-16 12:03 | P.PNPSI_ITS ---
Subjective Subjective Date of Service: 09/16/22 Reason For Visit: SI Interim History: Met with patient. Discussed with Nursing. Chart reviewed. Eager for discharge- I came here because my sleep was bad and its good now . Frustrated at being on a locked unit and hopeful he can discharge tomorrow rather than Saturday which was discussed with team. Looking forward to aftercare which he reports is set up at [facility]. No SI, agitation or psychosis. Medication Compliance: Yes Side effects from medications: No Attending Groups: Yes Review of Systems Acute medical concerns: No Review of Systems Review of Systems Yes all other systems are reviewed and are negative Mental Status Exam Mental Status Exam Narrative: Pleasant. Engaged. Organized. Appropriately presented. Euthymic. No SI. No HI. No agitation. No psychosis. Insight and judgment fair Diagnostics Vital Signs (24Hr): Vital Signs - 24 hr 09/15/22 20:30 09/16/22 09:23 Temperature 98.1 F 97.8 F Pulse Rate 73 74 Respiratory Rate 16 Blood Pressure 119/72 138/88 Pulse Oximetry 96 99 Oxygen Delivery Method Room Air Room Air BMI result Body Mass Index 20.7 Labs 09/12/22 13:38 09/13/22 09:02 Medications Medications Current Medications Acetaminophen (Acetaminophen 325 Mg Tablet) 650 mg PO Q6H PRN PRN Reason: Headache/Pain Mild Scale (1-3) Al Hydroxide/Mg Hydroxide (Magnesium Hydrox/Alum Hydrox 30 Ml Oral.Susp) 30 ml PO Q6H PRN PRN Reason: Heartburn/Nausea Hydroxyzine HCl (Hydroxyzine Hcl 25 Mg Tablet) 25 mg PO Q6H PRN PRN Reason: Anxiety Magnesium Hydroxide (Milk Of Magnesia 30 Ml Oral.Susp) 30 ml PO DAILY PRN PRN Reason: Constipation Mirtazapine (Mirtazapine 7.5 Mg Tablet) 7.5 mg PO BEDTIME [facility] Last Admin: 09/15/22 22:11 Dose: 7.5 mg Nicotine (Nicotine 14 Mg Patch.Td24) 14 mg TRANSDERMA DAILY [facility] Last Admin: 09/16/22 09:34 Dose: 14 mg Nicotine Polacrilex (Nicotine Polacrilex 2 Mg Gum) 4 mg BUCCAL Q2H PRN PRN Reason: Nicotine Cravings Last Admin: 09/16/22 10:50 Dose: 2 mg Allergies Allergies Allergy/AdvReac Type Severity Reaction Status Date / Time No Known Allergies Allergy Verified 09/12/22 08:25 [No Known Allergies*] Assessment & Plan Assessment & Plan (1) MDD (major depressive disorder), recurrent episode, moderate: Status: Acute Code(s): F33.1 - Major depressive disorder, recurrent, moderate (2) Cocaine abuse: Status: Acute Code(s): F14.10 - Cocaine abuse, uncomplicated (3) Chronic post-traumatic stress disorder (PTSD): Status: Acute Code(s): F43.12 - Post-traumatic stress disorder, chronic Plan Patient seems to be downplaying his recent behavior and symptoms including increased irritability he has suicidal statements increasing insomnia use of substances. History of depression PTSD question cocaine induced irritability in mood difficulty trying clarify diagnosis would benefit from outpatient treatment agreeable to starting mirtazapine 7.5 at bedtime no reported stephanie reportedly his mother was using cocaine during his development. Patient has an 8th grade education he does state he works regularly 09/14/2021 Patient seen chart reviewed continue mirtazapine at bedtime encourage therapeutic [place] abstinence from cocaine and marijuana uses marijuana of his self-care with PTSD On 3 day notice continue to evaluate safety 09/15/2022: No changes to current treatment plan 09/16: eager for discharge Reason for contiued inpatient stay Substantial Risk for: rapid decompensation Time Spent With Patient Time: Total time managing care of this patient today ____ minutes.
[2022-09-16 20:50] VITALS: BP 120/65; PULSE 69; RESP 18; TEMP 36.2; O2SAT 96
[2022-09-16] MEDS: Mirtazapine 7.5 MG TABLET PO (20:50)
[2022-09-17 08:10] VITALS: BP 132/86; PULSE 79; RESP 20; TEMP 36.7; O2SAT 100
[2022-09-17] MEDS: Nicotine 14 MG PATCH.TD24 TRANSDERMA (09:15)
[2022-09-17] MEDS: Nicotine Polacrilex 2 MG GUM 4 MG BUCCAL ×2 (14:57→19:02)
[2022-09-17 21:36] VITALS: BP 102/67; PULSE 81; RESP 18; O2SAT 98
[2022-09-17] MEDS: Mirtazapine 7.5 MG TABLET PO (21:39)
--- NOTE | 2022-09-17 22:41 | HO.PSYCHPN ---
Subjective Subjective Date of Service: 09/17/22 Reason For Visit: SI Subjective Notes: Rueda Warning, Conditional Voluntary and 3 Day Interim History: Patient states he is sleeping better denies any active SI relates history of trauma had been treated previously in [place] [facility] with [facility]idine denies active flashbacks but does report difficulty Avoiding crowds certain scenes he does smoke marijuana fairly regularly does not see this as an issue Medication Compliance: Yes Mental Status Exam Mental Status Exam Narrative: Patient was verbal and cooperative speech clear goal directed. Able to relate history of ADHD mood with some anxiety denied any thoughts of self-harm cannot really explain behavior prior to admission denies any active SI was able talk about self medicating with marijuana states future oriented sleep improved no psychosis not overly impulsive or aggressive states she is feeling better with current regimen and feeling safer toward discharge Diagnostics Vital Signs (24Hr): Vital Signs - 24 hr 09/17/22 08:10 Temperature 98.0 F Pulse Rate 79 Respiratory Rate 20 Blood Pressure 132/86 Pulse Oximetry 100 Oxygen Delivery Method Room Air BMI result Body Mass Index 20.7 Labs 09/12/22 13:38 09/13/22 09:02 Medications Medications Current Medications Acetaminophen (Acetaminophen 325 Mg Tablet) 650 mg PO Q6H PRN PRN Reason: Headache/Pain Mild Scale (1-3) Al Hydroxide/Mg Hydroxide (Magnesium Hydrox/Alum Hydrox 30 Ml Oral.Susp) 30 ml PO Q6H PRN PRN Reason: Heartburn/Nausea Hydroxyzine HCl (Hydroxyzine Hcl 25 Mg Tablet) 25 mg PO Q6H PRN PRN Reason: Anxiety Magnesium Hydroxide (Milk Of Magnesia 30 Ml Oral.Susp) 30 ml PO DAILY PRN PRN Reason: Constipation Mirtazapine (Mirtazapine 7.5 Mg Tablet) 7.5 mg PO BEDTIME [facility] Last Admin: 09/17/22 21:39 Dose: 7.5 mg Nicotine (Nicotine 14 Mg Patch.Td24) 14 mg TRANSDERMA DAILY [facility] Last Admin: 09/17/22 09:15 Dose: 14 mg Nicotine Polacrilex (Nicotine Polacrilex 2 Mg Gum) 4 mg BUCCAL Q2H PRN PRN Reason: Nicotine Cravings Last Admin: 09/17/22 19:02 Dose: 4 mg Allergies Allergies Allergy/AdvReac Type Severity Reaction Status Date / Time No Known Allergies Allergy Verified 09/12/22 08:25 [No Known Allergies*] Assessment & Plan Assessment & Plan (1) MDD (major depressive disorder), recurrent episode, moderate: Status: Acute Code(s): F33.1 - Major depressive disorder, recurrent, moderate (2) Cocaine abuse: Status: Acute Code(s): F14.10 - Cocaine abuse, uncomplicated (3) Chronic post-traumatic stress disorder (PTSD): Status: Acute Code(s): F43.12 - Post-traumatic stress disorder, chronic Plan Patient seems to be downplaying his recent behavior and symptoms including increased irritability he has suicidal statements increasing insomnia use of substances. History of depression PTSD question cocaine induced irritability in mood difficulty trying clarify diagnosis would benefit from outpatient treatment agreeable to starting mirtazapine 7.5 at bedtime no reported stephanie reportedly his mother was using cocaine during his development. Patient has an 8th grade education he does state he works regularly 09/14/2021 Patient seen chart reviewed continue mirtazapine at bedtime encourage therapeutic [place] abstinence from cocaine and marijuana uses marijuana of his self-care with PTSD On 3 day notice continue to evaluate safety 09/15/2022: No changes to current treatment plan 09/16: eager for discharge 09/17/2021 Patient does relate history of childhood ADHD and was treated with Abilify and Ritalin when younger. Unclear he stayed states this was helpful. He did find clonidine helpful later in his life regarding anxiety periods try to discuss risks and alternatives to regular use of marijuana to manage anxiety symptoms feels mirtazapine helpful. Looking for discharge referrals to [facility] Reason for contiued inpatient stay Substantial Risk for: inability to function and rapid decompensation Time Spent With Patient Time: Total time managing care of this patient today ____ minutes.
[2022-09-18] MEDS: Nicotine Polacrilex 2 MG GUM 4 MG BUCCAL (08:17)
[2022-09-18 08:24] VITALS: BP 114/70; PULSE 64; RESP 18; TEMP 36.7; O2SAT 97
--- NOTE | 2022-09-18 08:42 | PC.NURSE ---
Orthodox is alert, fully oriented, pleasant and cooperative with discharge process. He denies ideation, plan or intent to harm self or others. He denies physical complaint.
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
== END 2022-09-18 08:57 | disposition home or self-care (01) | DRG 751 ==
LOC: HO.ED 15:12 → HO.PADLT16 23:00
PROVIDERS: Physician Assistant Medical; Admitting Provider Psychiatry & Neurology Psychiatry; Emergency Provider Student in an Organized Health Care Education/Training Program; Visit Provider Psychiatry & Neurology Psychiatry
DX: F33.1 Major depressive disorder, recurrent, moderate (principal); R45.851 Suicidal ideations; F14.10 Cocaine abuse, uncomplicated; F17.210 Nicotine dependence, cigarettes, uncomplicated; F43.12 Post-traumatic stress disorder, chronic; Z71.6 Tobacco abuse counseling; Z20.822 Contact with and (suspected) exposure to COVID-19
CPT/HCPCS: 36415; 80053; 80061; 80076; 80307; 82077; 82607; 82746; 83036; 84443; 85025; 87635; 93005; 99285

== ENCOUNTER 2022-09-30 03:31 | Emergency (ER) | payer OTHER, SELFPAY ==
[2022-09-30 03:41] VITALS: BP 124/85; PULSE 88; RESP 18; TEMP 36.3; O2SAT 98; BMI 21.7
--- NOTE | 2022-09-30 04:03 | ED_ITS ---
HPI - Psych General Chief Complaint: Psychiatric Symptoms Stated Complaint: request sec 12 Time Seen by Provider: 09/30/22 03:56 Source: patient Mode of arrival: ambulatory Limitations: no limitations History of Present Illness HPI Narrative: Patient comes emergency room complaining of thoughts of ?self-harm? without suicidal ideation or homicidal ideation. Patient states that he has been contemplating causing himself harm by concussing himself . Patient states that he has been compliant taking mirtazapine and clonidine, but has been unable to sleep for the last 2 days. Patient denies drug abuse. Related Data Home Medications Medication Instructions Recorded Confirmed clonidine HCl 0.1 mg tablet 1 tab PO BID PRN anxiety 09/30/22 09/30/22 mirtazapine 7.5 mg tablet 1 tab PO BEDTIME 09/30/22 09/30/22 nicotine (polacrilex) 2 mg gum 2 gum PO Q2H PRN nicotine cravings 09/30/22 09/30/22 Allergies Allergy/AdvReac Type Severity Reaction Status Date / Time No Known Allergies Allergy Verified 09/30/22 03:40 [No Known Allergies*] Review of Systems 2 Review of Systems: Constitutional : No Weight loss, No Fever, No Chills, No Night Sweats, No Fatigue, No Malaise ENT/Mouth : No Hearing loss, No Ear Pain, No Nasal Congestion, No Sinus Pain, No Hoarseness, No sore throat, No Rhinorrhea, No Swallowing Difficulty Eyes: No Eye Pain, No Swelling, No Redness, No Foreign Body, No Discharge, No Vision Changes Cardiovascular : No Chest Pain, No SOB, No Dyspnea on Exertion, No Orthopnea, No Edema, No Palpitations Respiratory : No Cough, No Sputum, No Wheezing, No Smoke Exposure, No Dyspnea Gastrointestinal : No Nausea, No Vomiting, No Diarrhea, No Constipation, No abdominal Pain, No Hematochezia, No Melena Genitourinary : no irregular bleeding, No Dysuria, No Urinary Frequency, No Hematuria, No Urinary Incontinence, No Urgency, No Flank Pain, No Urinary Flow Changes, No Hesitancy Musculoskeletal : No joint pain, No Myalgias, No Joint Swelling Skin : No Skin Lesions, No rash Neuro : No Weakness, No Numbness, No Paresthesias, No Loss of Consciousness, No Dizziness, No Headache Psych : Complaining of self-harm thoughts, no suicidal ideation, complaining of anxiety, no homicidal ideation Heme/Lymph: No Bruising, No Bleeding,No Lymphadenopathy Endocrine : No Polyuria, No Polydipsia, No Temperature Intolerance [facility] Past Medical History Medical History Chronic post-traumatic stress disorder (PTSD) No active medical problems Social History Social History Household Members: Other Household Members Other:: fiancee Housing: Apartment Do you presently have visiting nurse or other home services: No Patient Tobacco Use Status: Current everyday Tobacco user Tobacco use type: Cigarette Cigarette Packs Per Day: 1 Cigarettes Per Day: 20.0 Years Smoked: 10 e-Cigarette/Vaping Use: Currently Using Second Hand Smoke Exposure: Yes Substance Use Type: Crack/Cocaine and Marijuana service: No Sexual orientation: Straight/Heterosexual Physical Exam Vital Signs: Vital Signs: Last Vital Signs Temp 97.4 F 09/30/22 03:41 Pulse 88 09/30/22 03:41 Resp 18 09/30/22 03:41 BP 124/85 09/30/22 03:41 Pulse Ox 98 09/30/22 03:41 O2 Del Method 09/30/22 03:41 BMI result Body Mass Index 21.7 Const: Other: Appearance: Alert. Oriented X3. No acute distress. Eyes: Pupils equal, round and reactive to light. ENT: Pharynx normal. Neck: Normal inspection. Neck supple. No lymph nodes noted. No crepitus CVS: Normal heart rate and rhythm. Pulses normal. Normal S1 and S2 Respiratory: No respiratory distress. Breath sounds normal. No Wheezing. No rales Abdomen: Soft and nontender. No rigidity. No distention. Skin: Skin warm and dry. Normal skin color. Normal skin turgor. Extremities: No lower extremity edema. No Lacerations. No Rash Neuro: Oriented X 3. No motor deficit. No sensory deficit. Moving all extremities. No slurred speech. CN 2 through 12 grossly intact Psych: calm, a bit anxious cooperative Course Course Course Narrative: -care team consult pending -physician observation started at 04:00 Medical Decision Making Medical Decision Making MDM Narrative: -care team consult pending -patient calm, cooperative. Requesting food and a book to read Discharge Plan Discharge Clinical Impression: Anxiety Patient Disposition: Still a Patient Prescriptions: No Action clonidine HCl 0.1 mg tablet 1 tab PO BID PRN (Reason: anxiety) nicotine (polacrilex) 2 mg gum 2 gum PO Q2H PRN (Reason: nicotine cravings) mirtazapine 7.5 mg tablet 1 tab PO BEDTIME
[2022-09-30 04:12] LABS: COVID-19 Test Negative (Negative); IDNOW Serial# 6674DD1D
[2022-09-30 04:28] LABS: Amphetamine Screen Urine Not Detected (Not Detect); Barbiturates, Urine Not Detected (Not Detect); Benzodiazepines Screen Urine Not Detected (Not Detect); Cannabinoid Screen Urine POSITIVE (Not Detect); Cocaine Screen Urine POSITIVE (Not Detect); Fentanyl, urine Not Detected (Not Detect); Opiate Screen Urine Not Detected (Not Detect); Phencyclidine Screen Urine Not Detected (Not Detect)
[2022-09-30] MEDS: cloNIDine HCL 0.1 MG TABLET PO (05:12)
[2022-09-30] MEDS: Mirtazapine 7.5 MG TABLET PO (05:12)
--- NOTE | 2022-09-30 05:16 | PC.NURSE ---
Patient just arrived, calm and quiet, reading book, behavior non concerning, med rec completed/approved/Mirtazapine 7.5 mg administered at ordered, awaiting care team evaluation, patient was discharged from [facility] 09/18/2022, VSS, will continue to monitor.
--- NOTE | 2022-09-30 10:24 | PC.NURSE ---
PT SLEEPING. AWAITING CARE TEAM EVAL.
--- NOTE | 2022-09-30 16:16 | MHC.CARE ---
Patient evaluated by the CARE Team and does not require a psychiatric admission there are no current safety concerns. of patient here and is comfortable with discharge plan. See written assessment for details. Provider updated
== END 2022-09-30 16:24 | disposition home or self-care (01) ==
PROVIDERS: Emergency Provider Emergency Medicine
DX: F41.1 Generalized anxiety disorder (principal); F43.0 Acute stress reaction; R45.851 Suicidal ideations; F17.210 Nicotine dependence, cigarettes, uncomplicated; Z20.822 Contact with and (suspected) exposure to COVID-19; Z20.828 Contact with and (suspected) exposure to other viral communicable diseases; Z79.899 Other long term (current) drug therapy; Z71.6 Tobacco abuse counseling
CPT/HCPCS: 80307; 87635; 99284; S9485